=== PATIENT | female | born 2000 | race Two or more races ===

== ENCOUNTER 2023-01-05 22:42 | Emergency (ER) | payer MEDICAID, OTHER ==
[~2023-01-05] VITALS: Ht 157.5 cm; Wt 69.1 kg
[2023-01-05 23:26] LABS: Urine Bacteria NONE SEEN /hpf (None Seen); Urine Blood Negative /uL (Negative); Urine Budding Yeast MANY /hpf (None Seen); Urine Clarity CLOUDY (Clear); Urine Color Colorless (Yellow); Urine Protein, UAD Negative (Negative); Urine Specific Gravity 1.016 (1.001-1.035); Urine Urobilinogen Normal (Negative); Urine WBC 11 /hpf (0 - 5)
[2023-01-05 23:42] LABS: Basophils # (auto) 0 10 ^3/uL (0-0.2); Basophils % (auto) 0.3 % (0.0-2.0); Eosinophils # (auto) 0.1 10 ^3/uL (0-0.8); Eosinophils % (auto) 0.7 % (0.0-7.0); Hematocrit 36.1 % (36.0-46.0); Hemoglobin 11.9 g/dL (12.2-16.2); Lymphocytes # (auto) 2.8 10 ^3/uL (0.4-5.4); Lymphocytes % (auto) 31.6 % (10.0-50.0); Mean Corpuscular Hemoglobin 26.3 pg (28.0-32.0); Mean Corpuscular Hgb Conc. 33.1 g/dL (32.0-36.0); Mean Corpuscular Volume 79.5 fL (80.0-100.0); Monocytes # (auto) 0.8 10 ^3/uL (0-1.3); Monocytes % (auto) 8.7 % (0.0-12.0); Neutrophils # (auto) 5.2 10 ^3/uL (1.6-8.6); Neutrophils % (auto) 58.7 % (37.0-80.0); Nucleated Red Blood Cells % 0.2 %; Red Blood Cells 4.54 10^6/uL (4.0-5.20); Red Cell Distribution Width 16.7 % (11.8-14.3); White Blood Cell 8.9 10^3/uL (4.4-10.8)
[2023-01-06] LABS: Albumin 3.7 g/dL (3.4-5.0); BUN/Creatinine Ratio 15.8 (10.0-20.0); Potassium 3.9 mmol/L (3.5-5.1)
[2023-01-06 00:03] LABS: Bilirubin, Total 0.1 mg/dL (0.2-1.0); Total Protein 7.9 g/dL (6.4-8.2)
[2023-01-06 03:11] VITALS: BP 105/67; PULSE 71; RESP 18; TEMP 99; O2SAT 100
== END 2023-01-06 06:19 | disposition home or self-care (01) ==
LOC: ER 22:46
DX: O34.61 Maternal care for abnormality of vagina, first trimester (principal); R10.2 Pelvic and perineal pain; Z3A.08 8 weeks gestation of pregnancy
CPT/HCPCS: 36415; 76801; 80053; 81001; 84702; 85025; 86901